=== PATIENT | female | born 1975 | race Caucasian/White ===

== ENCOUNTER 2022-05-16 14:42 | Outpatient (CLI) | payer BC | END 2022-05-16 14:43 | disposition home or self-care (01) | LOC: BICRAD 14:42 | PROVIDERS: ATTEND Family Medicine | DX: Z01.818 Encounter for other preprocedural examination (principal) | CPT/HCPCS: 71046 ==

== ENCOUNTER 2022-05-19 08:45 | Inpatient (IN) | payer OTHER, SELFPAY ==
[2022-05-20 12:03] VITALS: BMI 42.1
[2022-05-24] MEDS ORDERED: Lidocaine 1% MPF 2 ML VIAL ONE (08:51)
[2022-05-24] MEDS ORDERED: CEFAZOLIN 2 GM VIAL ONE (08:51)
[2022-05-24] MEDS ORDERED: Sodium Chloride 0.9% 100 ML ONE (08:51)
[2022-05-24] MEDS ORDERED: Heparin 5,000 UNITS/ML VIAL ONE (09:50)
[2022-05-24] MEDS ORDERED: Fentanyl 100 MCG/2 ML VIAL ONE ×2 (10:27→13:09)
[2022-05-24] MEDS ORDERED: Bupivacaine/Epinephrine 0.25% 30 ML VIAL ONE (10:30)
[2022-05-24] MEDS ORDERED: Ketamine 50 MG/ML (10ML VIAL) ONE (10:33)
[2022-05-24] MEDS ORDERED: fentaNYL Citrate/PF 100 MCG/2 ML SYRINGE ONE (10:33)
[2022-05-24] MEDS ORDERED: SUGAMMADEX SODIUM 200 MG/2 ML VIAL ONE (10:34)
[2022-05-24] MEDS ORDERED: Lidocaine 1% PF 5 ML VIAL ONE (10:59)
[2022-05-24] MEDS ORDERED: PROPOFOL 200 MG/20 ML VIAL ONE (10:59)
[2022-05-24] MEDS ORDERED: Glycopyrrolate 0.2 MG/ML 5 ML SYRINGE ONE (10:59)
[2022-05-24] MEDS ORDERED: Dexamethasone 20 MG/5 ML VIAL ONE (10:59)
[2022-05-24] MEDS ORDERED: Albuterol Sulfate HFA (OR ONLY) ONE (10:59)
[2022-05-24] MEDS ORDERED: ePHEDrine 50 MG/ML VIAL ONE (10:59)
[2022-05-24] MEDS ORDERED: Rocuronium Bromide 10 MG/ML (10ML VIAL) ONE (10:59)
[2022-05-24] MEDS ORDERED: Ondansetron PF 4 MG/2 ML Vial ONE ×2 (10:59→14:06)
[2022-05-24] MEDS ORDERED: Neostigmine Methylsulfate 3 MG/3 ML SYRINGE ONE (10:59)
[2022-05-24] MEDS ORDERED: Ondansetron HCl/PF 4 MG/2 ML Vial IVP PRN (11:28)
[2022-05-24] MEDS ORDERED: Ondansetron PF 4 MG/2 ML Vial IVP PRN ×2 (11:28→17:24)
[2022-05-24] MEDS ORDERED: diphenhydrAMINE 50 MG/ML VIAL IVP PRN ×2 (11:28→17:24)
[2022-05-24] MEDS ORDERED: diphenhydrAMINE 50 MG/ML VIAL IM PRN (11:28)
[2022-05-24] MEDS ORDERED: diphenhydrAMINE 25 MG CAP PO PRN (11:28)
[2022-05-24] MEDS ORDERED: Naloxone HCl 0.4 mg/ml Vial IV PRN (11:28)
[2022-05-24] MEDS ORDERED: fentaNYL Citrate/PF 2,000 MCG in Sodium Chloride 0.9% 60 ML IV PRN (11:28)
[2022-05-24] MEDS ORDERED: Promethazine HCl 25 MG/ML VIAL IVPB PRN (11:28)
[2022-05-24] MEDS ORDERED: Promethazine HCl 25 MG/ML VIAL IM PRN ×3 (11:28→17:24)
[2022-05-24] MEDS ORDERED: Communication Order-Pharmacy FS SCH (11:30)
[2022-05-24] MEDS ORDERED: hydrALAZINE 20 MG/ML VIAL SLOW IVP PRN (17:24)
[2022-05-24] MEDS ORDERED: Dextrose 5% in Water 1,000 ML IV PRN (17:24)
[2022-05-24] MEDS ORDERED: Cyclobenzaprine 10 MG TAB PO PRN (17:24)
[2022-05-24] MEDS ORDERED: Dextrose 50% Abboject 50 ML SYRINGE SLOW IVP PRN (17:24)
[2022-05-24] MEDS: D5 1/2 NS w/20 mEq KCL 1,000 ML IV SCH (18:44)
[2022-05-24] MEDS: Gabapentin 300 MG CAP PO SCH (20:20)
[2022-05-24] MEDS ORDERED: Gabapentin 300 MG CAP PO SCH (21:00)
[2022-05-25] MEDS: D5 1/2 NS w/20 mEq KCL 1,000 ML IV SCH ×3 (02:45→17:52)
[2022-05-25 06:14] LABS: #Lymphocytes 2.3 thou/uL (1.20-3.40); #Monocytes 0.6 thou/uL (0.11-0.59); #Neutrophils 6.5 thou/uL (1.40-6.50); %Basophils 0.4 % (0.0-1.0); %Eosinophils 0.3 % (0.0-10.0); %Lymphocytes 24.5 % (21.0-51.0); %Neutrophils 68.7 % (42.0-75.0); Hemoglobin 12.1 g/dL (12.0-16.0); Mean Corpuscular Volume 87.9 fL (78.0-98.0); Mean Platelet Volume 8.2 fL (7.4-10.4); Platelet Count 288 thou/uL (130-400); RBC Distribution Width 12.6 % (11.5-14.5); Red Blood Cell (RBC) Count 4.17 mill/uL (4.20-5.40); White Blood Cell (WBC) Count 9.5 thou/uL (4.8-10.8)
[2022-05-25 06:33] LABS: Anion Gap 12 mmol/L (10-20); BUN (Urea Nitrogen) 8 mg/dL (7.0-18.7); Calc. Creatinine Clearance 156 mL/min (70-130); Calcium 9.2 mg/dL (7.8-10.44); Carbon Dioxide 24 mmol/L (22-29); Chloride 106 mmol/L (98-107); Estimated GFR 86; Glucose 112 mg/dL (70-105); Sodium 138 mmol/L (136-145)
[2022-05-25] MEDS ORDERED: Enoxaparin Sodium 40 MG/0.4 ML SYRINGE SC SCH (09:00)
[2022-05-25] MEDS ORDERED: Escitalopram Oxalate 10 mg Tablet PO SCH (09:00)
[2022-05-25] MEDS ORDERED: Pantoprazole 40 MG VIAL IVP SCH (09:00)
[2022-05-25] MEDS ORDERED: Fentanyl 100 MCG/2 ML VIAL SLOW IVP PRN ×2 (09:26)
[2022-05-25 11:54] VITALS: BP 141/85; TEMP 97.9
[2022-05-25] MEDS: Gabapentin 300 MG CAP PO SCH (12:05)
[2022-05-25] MEDS: Hydrocodone-Acetamin 15 ML UDCUP PO PRN ×2 (12:42→16:43)
== END 2022-05-25 18:20 | disposition home or self-care (01) | DRG 621 ==
LOC: SURG A 05-24 08:00
PROVIDERS: ADMIT Surgery; ATTEND Surgery
PROC: 0D164ZA Bypass Stomach to Jejunum, Percutaneous Endoscopic Approach (ICD-10-PCS; principal; 2022-05-24)
DX: E66.01 Morbid (severe) obesity due to excess calories (principal); Z68.41 Body mass index [BMI] 40.0-44.9, adult; K21.9 Gastro-esophageal reflux disease without esophagitis; G89.29 Other chronic pain; F41.9 Anxiety disorder, unspecified; F32.A Depression, unspecified; G40.909 Epilepsy, unspecified, not intractable, without status epilepticus; J45.909 Unspecified asthma, uncomplicated; Z79.899 Other long term (current) drug therapy; Z90.710 Acquired absence of both cervix and uterus
CPT/HCPCS: 36415; 80048; 85025; 94760; C9113; J0690; J1100; J1644; J1650; J2405; J2704; J3010; J3480; J3490

== ENCOUNTER 2022-05-20 14:54 | Outpatient (CLI) | payer BC | END 2022-05-20 14:55 | disposition home or self-care (01) | LOC: DTY/OP 14:54 | PROVIDERS: ATTEND Surgery | DX: E66.01 Morbid (severe) obesity due to excess calories (principal) | CPT/HCPCS: 97802 ==

== ENCOUNTER 2022-05-23 17:44 | Outpatient (CLI) | payer BC | END 2022-05-23 17:45 | disposition home or self-care (01) | LOC: LABBT 17:44 | PROVIDERS: ATTEND Surgery | DX: Z20.822 Contact with and (suspected) exposure to COVID-19 (principal) | CPT/HCPCS: 87811 ==

== ENCOUNTER 2024-04-19 12:21 | Outpatient (CLI) | payer OTHER | END 2024-04-19 12:22 | disposition home or self-care (01) | LOC: BICMAMMO 12:21 | PROVIDERS: ATTEND Family Medicine | DX: Z12.31 Encounter for screening mammogram for malignant neoplasm of breast (principal) | CPT/HCPCS: 77063; 77067 ==

== ENCOUNTER 2024-11-01 14:58 | Outpatient (CLI) | payer OTHER | END 2024-11-01 14:59 | disposition home or self-care (01) | LOC: BICMAMMO 14:58 | DX: D24.2 Benign neoplasm of left breast (principal) | CPT/HCPCS: G0279 ==